=== PATIENT | female | born 1945 | race Caucasian/White ===

== ENCOUNTER 2024-05-21 17:39 | Inpatient (IN) | payer OTHER ==
[2024-05-21] MEDS ORDERED: ONDANSETRON 4 MG/2 ML VIAL ONE (18:23)
[2024-05-21] MEDS ORDERED: MORPHINE 4 MG/ML SYR ONE (18:24)
[2024-05-21 18:28] LABS: Absolute Eosinophils 0.1 K/uL (0-0.5); Absolute Lymphocytes (CBC) 0.8 K/uL (0.7-4.9); Absolute Monocytes 0.3 K/uL (0.1-1.3); Absolute Neutrophil 9.1 K/uL (1.8-8.0); Basophils % 0.4 % (0-1.3); Eosinophils % 0.8 % (0-4.4); Hematocrit 41.9 % (36.0-45.0); MCH 30.8 pg (27.0-35.0); MCHC 33.5 g/dL (32.0-36.0); MCV 91.8 fL (80-100); MPV 7.7 fL (7.6-11.3); Monocytes % 2.9 % (3.3-12.3); Neutrophils % 87.9 % (41.7-73.7); Platelets 286 thou/uL (152-406); RBC Red Blood Cell Count 4.56 M/uL (3.86-4.86); Red Cell Distribution Width 13.2 % (12.1-15.2)
[2024-05-21 18:43] LABS: Albumin 3.5 g/dL (3.4-5.0); Albumin/Globulin Ratio 0.9 (1.1-1.8); Bilirubin Total 0.8 mg/dL (0.2-1.0); Protein, Total 7.5 g/dL (6.4-8.2)
--- NOTE | 2024-05-21 19:44 | RAD REPORT ---
EXAMINATION: CT ABDOMEN AND PELVIS WITH CONTRAST CLINICAL INDICATION: Female, 79 years old.ABD PAIN TECHNIQUE: CT abdomen and pelvis was performed, after the administration of IV contrast, [facility]. Axial, sagittal and coronal reconstructions were obtained. One or more of the following dose reduction techniques were used: Automated exposure control, adjustment of the mA and/o r kV according to patient size, and/or iterative reconstruction. Unless otherwise specified, incidental findings do not require dedicated imaging follow-up. [id number]. COMPARISON: 02/29/2024 FINDINGS: LOWER CHEST: No acute process identified.No significant pericardial effusion. UPPER GI: No significant abnormality. LIVER: No significant focal abnormality. GALLBLADDER/BILE DUCTS: Cholecystectomy. Mild extra-hepatic biliary ductal dilatation is likely relat ed to the post-cholecystectomy state. Consider correlating with LFT's.? PANCREAS: No mass, ductal dilation, or zoie-pancreatic fluid. SPLEEN: Unremarkable. ADRENALS: No adrenal masses. KIDNEYS AND URETERS: No hydronephrosis.Low density and/or too small to characterize renal lesions whi ch are statistically benign.No renal calculi. ABDOMINAL AORTA AND OTHER VESSELS: Mild atherosclerotic changes. PERITONEUM: Nonspecific free fluid. LYMPH NODES: No pathologic lymphadenopathy. ABDOMINAL WALL: Unremarkable SMALL BOWEL/COLON: Small bowel obstruction with transition point in the right upper quadrant where th ere is sharply angulated bowel likely reflecting adhesions. The small bowel measures up to 4.9 cm. URINARY BLADDER: Underdistended but grossly unremarkable. REPRODUCTIVE ORGANS: No pathologic process. MUSCULOSKELETAL: Multilevel degenerative changes in the spine. No acute fracture. Hip arthroplasties. ADDITIONAL FINDINGS: None. IMPRESSION: Small bowel obstruction with transition point in the right upper quadrant presumably secondary to adh esions. Mild nonspecific perihepatic free fluid.
--- NOTE | 2024-05-21 19:50 | EDPHYS ---
Physician Documentation [facility] Name: Jeny Alonso Age: 79 yrs Sex: Female : 1945 Arrival Date: 05/21/2024 Time: 17:39 Bed 25 Private MD: ED Physician Husam Marshall HPI: 05/21 18:10 This 79 yrs old Female presents to ER via Ambulatory with complaints of Severe sp3 Abdominal Pain. 18:10 79-year-old female with history of hyperlipidemia, hypertension, diabetes, prior fecal sp3 impaction now presents to the ED with chief complaint abdominal pain over the last 1 to 2 days. Last bowel movement was yesterday. She states that she feels distended and has had some increased belching. She denies any headache, fever, URI symptoms, chest pain, shortness of breath, back pain, rash, syncope, near syncope, known sick contacts, travel history, or any other signs or symptoms on ROS at this time. Surgical history includes appendectomy and cholecystectomy. Patient is not on any anticoagulants or antiplatelet agents.. Historical: - Allergies: 18:03 NSAIDS; cm10 - PMHx: 18:03 High Cholesterol; Hypertension; Diabetes mellitus; cm10 - PSHx: 18:03 Cholecystectomy; Appendectomy; section; cm10 - Immunization history:: Adult Immunizations up to date. - Infectious Disease History:: Denies. - Social history:: Smoking status: Patient denies any tobacco usage or history of. ROS: 18:10 Constitutional: Negative for fever, chills, and weight loss, Eyes: Negative for injury, sp3 pain, redness, and discharge, Neck: Negative for injury, pain, and swelling, Cardiovascular: Negative for chest pain, palpitations, and edema, Respiratory: Negative for shortness of breath, cough, wheezing, and pleuritic chest pain, Back: Negative for injury and pain, MS/Extremity: Negative for injury and deformity, Skin: Negative for injury, rash, and discoloration, Neuro: Negative for headache, weakness, numbness, tingling, and seizure, Psych: Negative for depression, anxiety, suicide ideation, homicidal ideation, and hallucinations, Allergy/Immunology: Negative for hives, rash, and allergies, Endocrine: Negative for neck swelling, polydipsia, polyuria, polyphagia, and marked weight changes, Hematologic/Lymphatic: Negative for swollen nodes, abnormal bleeding, and unusual bruising, 18:10 All other systems are negative, Exam: 18:10 Constitutional: This is a well developed, well nourished patient who is awake, alert, sp3 and in no acute distress. Head/Face: Normocephalic, atraumatic. Eyes: Pupils equal round and reactive to light, extra-ocular motions intact. Lids and lashes normal. Conjunctiva and sclera are non-icteric and not injected. Cornea within normal limits. Periorbital areas with no swelling, redness, or edema. Neck: Trachea midline, no thyromegaly or masses palpated, and no cervical lymphadenopathy. Supple, full range of motion without nuchal rigidity, or vertebral point tenderness. No Meningismus. Chest/axilla: Normal chest wall appearance and motion. Nontender with no deformity. No lesions are appreciated. Cardiovascular: Regular rate and rhythm with a normal S1 and S2. No gallops, murmurs, or rubs. Normal PMI, no JVD. No pulse deficits. Respiratory: Lungs have equal breath sounds bilaterally, clear to auscultation and percussion. No rales, rhonchi or wheezes noted. No increased work of breathing, no retractions or nasal flaring. Back: No spinal tenderness. No costovertebral tenderness. Full range of motion. Skin: Warm, dry with normal turgor. Normal color with no rashes, no lesions, and no evidence of cellulitis. MS/ Extremity: Pulses equal, no cyanosis. Neurovascular intact. Full, normal range of motion. Neuro: Awake and alert, GCS 15, oriented to person, place, time, and situation. Cranial nerves II-XII grossly intact. Motor strength 5/5 in all extremities. Sensory grossly intact. Cerebellar exam normal. Normal gait. Psych: Awake, alert, with orientation to person, place and time. Behavior, mood, and affect are within normal limits. 18:10 Abdomen/GI: Mildly distended abdomen diffusely tender to palpation bilateral lower quadrants. No peritoneal signs, rebound or guarding., Vital Signs: 18:04 BP 171 / 50; Pulse 60; Resp 15; Temp 97.6(O); Pulse Ox 98% on R/A; Weight 86.18 kg; cm10 Height 5 ft. 4 in. ; Pain 8/10; 19:30 BP 160 / 47; Pulse 62; Resp 16; Pulse Ox 98% on R/A; jb4 21:00 BP 138 / 46; Pulse 62; Resp 16; Pulse Ox 94% on R/A; jb4 22:00 BP 129 / 66; Pulse 58; Resp 16; Pulse Ox 98% on R/A; jb4 18:04 Body Mass Index 32.61 (86.18 kg, 162.56 cm) cm10 18:04 Pain Scale: Adult cm10 MDM: 17:48 Medical Screening Exam initiated sp3 18:11 Data reviewed: vital signs, nurses notes, lab test result(s), radiologic studies. ED sp3 course: 79-year-old female with abdominal pain and distention. Differential diagnosis includes ileus, bowel obstruction, fecal impaction, other GI process, among others. I am not highly suspicious of surgical abdomen, aortic/vascular pathology, ACS, PE, sepsis, shock or any other critical process. Workup will include CT scan of the abdomen pelvis, general labs and supportive care with pain and nausea medications as indicated.. 19:47 ED course: CT demonstrates small bowel obstruction right upper quadrant transition sp3 point presumably due to adhesions. Will discuss with surgery Dr. Ying and internal medicine Dr. Villa.. 05/21 18:07 Order name: CBC with Diff; Complete Time: 19:19 sp3 05/21 18:07 Order name: CMP; Complete Time: 19:19 sp3 05/21 18:07 Order name: Lipase; Complete Time: 19:19 sp3 05/21 18:07 Order name: Urinalysis w/ reflexes sp3 05/21 20:12 Order name: Urinalysis w/ reflexes EDMS 05/21 20:12 Order name: CBC with Automated Diff EDMS 05/21 20:12 Order name: CBC with Automated Diff EDMS 05/21 20:12 Order name: Comprehensive Metabolic Panel EDMS 05/21 20:12 Order name: Comprehensive Metabolic Panel EDMS 05/21 20:13 Order name: Urine Culture EDMS 05/21 18:07 Order name: CT Abd/Pelvis - IV Contrast Only; Complete Time: 19:45 sp3 05/21 20:12 Order name: CONS Physician Consult EDND 05/21 18:07 Order name: IV Saline Lock; Complete Time: 18:30 sp3 05/21 18:07 Order name: Labs collected and sent; Complete Time: 18:30 sp3 05/21 19:40 Order name: Straight Cath - Urine; Complete Time: 20:08 vc1 05/21 19:49 Order name: NPO; Complete Time: 20:08 sp3 Administered Medications: 18:29 Drug: Ondansetron IVP 4 mg IVP once; over 2 minutes Route: IVP; Site: left antecubital; bp 19:00 Follow up: Response: No adverse reaction; Marked relief of symptoms jb4 18:29 Drug: morphine IVP or IV 4 mg IVP once over 4 mins Route: IVP; Infused Over: 4 mins; bp Site: left antecubital; 19:00 Follow up: Response: No adverse reaction; Marked relief of symptoms jb4 Disposition Summary: 05/21/24 19:50 Hospitalization Ordered Notes: Hospitalization Status: Inpatient Admission sp3 Provider: Salvador Villa sp3 Location: Telemetry/MedSur (Inpatient) sp3 Condition: Stable sp3 Problem: new sp3 Symptoms: have worsened sp3 Bed/Room Type: Standard sp3 Room Assignment: 230(05/21/24 20:15) rv1 Diagnosis - Small bowel obstruction, abdominal pain sp3 Forms: - Medication Reconciliation Form sp3 - SBAR form sp3 - Leadership Thank You Letter sp3 Signatures: Dispatcher [employer] Kevin Desai, SOCRATES RN bp Shanda Lassiter MD MD sp3 Brit Grayson RN RN vc1 Ana Lilia Fowler rv1 Neli Sethi RN RN cm10 Apollo Pierce RN jb4 Corrections: (The following items were deleted from the chart) 20:15 19:50 sp3 rv1
--- NOTE | 2024-05-21 19:50 | ER ---
Nurse's Notes [facility] Name: Jeny Alonso Age: 79 yrs Sex: Female : 1945 Arrival Date: 05/21/2024 Time: 17:39 Bed 25 Private MD: Diagnosis: Small bowel obstruction, abdominal pain Presentation: 05/21 18:04 Chief complaint: Patient states: Abdominal pain and distention onset today. Pt also cm10 reports nausea. Pt states that last time she had pain similar to this she has a fecal impaction. Coronavirus screen: Client denies travel out of the [place] in the last 14 days. Ebola Screen: Patient denies travel to an Ebola-affected area in the 21 days before illness onset. Initial Sepsis Screen: Does the patient meet any 2 criteria? No. Patient's initial sepsis screen is negative. Does the patient have a suspected source of infection? No. Patient's initial sepsis screen is negative. Risk Assessment: Do you want to hurt yourself or someone else? Patient reports no desire to harm self or others. Onset of symptoms was May 21, 2024. 18:04 Method Of Arrival: Ambulatory cm10 18:04 Acuity: NOE 3 cm10 Triage Assessment: 18:03 General: Appears uncomfortable, Behavior is calm, cooperative. Pain: Complains of pain cm10 in abdomen. Neuro: No deficits noted. Level of Consciousness is awake, alert, obeys commands, Oriented to person, place, time, situation, Appropriate for age. Respiratory: No deficits noted. Airway is patent Respiratory effort is even, unlabored, Respiratory pattern is regular, symmetrical. GI: Abdomen is distended. Historical: - Allergies: 18:03 NSAIDS; cm10 - PMHx: 18:03 High Cholesterol; Hypertension; Diabetes mellitus; cm10 - PSHx: 18:03 Cholecystectomy; Appendectomy; section; cm10 - Immunization history:: Adult Immunizations up to date. - Infectious Disease History:: Denies. - Social history:: Smoking status: Patient denies any tobacco usage or history of. Screenin:30 [facility] ED Fall Risk Assessment (Adult) History of falling in the last 3 months, bp including since admission No falls in past 3 months (0 pts) Confusion or Disorientation No (0 pts) Intoxicated or Sedated No (0 pts) Impaired Gait No (0 pts) Mobility Assist Device Used No (0 pt) Altered Elimination No (0 pt) Score/Fall Risk Level 0 - 2 = Low Risk Oriented to surroundings, Maintained a safe environment. Abuse screen: Denies threats or abuse. Nutritional screening: No deficits noted. Tuberculosis screening: No symptoms or risk factors identified. Assessment: 18:33 General: Appears in no apparent distress. comfortable, Behavior is calm, cooperative, bp appropriate for age. Pain: Complains of pain in abdomen Pain does not radiate. Pain currently is 7 out of 10 on a pain scale. Neuro: Level of Consciousness is awake, alert, obeys commands, Oriented to person, place, time, situation. Cardiovascular: Patient's skin is warm and dry. Respiratory: Airway is patent Respiratory effort is even, unlabored, Respiratory pattern is regular, symmetrical. GI: Abdomen is flat, non-distended, Abd is soft X 4 quads Abdomen is tender to palpation X 4 quads. Reports lower abdominal pain, upper abdominal pain, diarrhea, nausea. Derm: Skin is intact, Skin is pink, warm \T\ dry. Musculoskeletal: Circulation, motion, and sensation intact. Range of motion: intact in all extremities. 20:00 Reassessment: Patient appears in no apparent distress at this time. Patient and/or jb4 family updated on plan of care and expected duration. Pain level reassessed. Patient is alert, oriented x 3, equal unlabored respirations, skin warm/dry/pink. 21:00 Reassessment: Patient appears in no apparent distress at this time. Patient and/or jb4 family updated on plan of care and expected duration. Pain level reassessed. Patient is alert, oriented x 3, equal unlabored respirations, skin warm/dry/pink. 22:00 Reassessment: Patient appears in no apparent distress at this time. Patient and/or jb4 family updated on plan of care and expected duration. Pain level reassessed. Patient is alert, oriented x 3, equal unlabored respirations, skin warm/dry/pink. Vital Signs: 18:04 BP 171 / 50; Pulse 60; Resp 15; Temp 97.6(O); Pulse Ox 98% on R/A; Weight 86.18 kg; cm10 Height 5 ft. 4 in. ; Pain 8/10; 19:30 BP 160 / 47; Pulse 62; Resp 16; Pulse Ox 98% on R/A; jb4 21:00 BP 138 / 46; Pulse 62; Resp 16; Pulse Ox 94% on R/A; jb4 22:00 BP 129 / 66; Pulse 58; Resp 16; Pulse Ox 98% on R/A; jb4 18:04 Body Mass Index 32.61 (86.18 kg, 162.56 cm) cm10 18:04 Pain Scale: Adult cm10 ED Course: 17:46 Patient arrived in ED. cj3 17:48 Shanda Lassiter MD is Attending Physician. sp3 18:03 Kevin Payan, SOCRATES is Primary Nurse. bp 18:04 Arm band placed on right wrist. Patient placed in an exam room, on a stretcher. cm10 18:06 Triage completed. cm10 18:18 No provider procedures requiring assistance completed. Inserted saline lock: 20 gauge bp in left antecubital area, using aseptic technique. Blood collected. 18:30 Patient has correct armband on for positive identification. Bed in low position. Call bp light in reach. Side rails up X 1. 18:30 CBC with Diff Sent. bp 18:30 CMP Sent. bp 18:30 Lipase Sent. bp 19:30 CT Abd/Pelvis - IV Contrast Only In Process Unspecified. EDMS 19:49 Salvador Villa MD is Hospitalizing Provider. sp3 20:00 Attending Physician role handed off by Shanda Lassiter MD sp4 20:00 Husam Marshall MD is Attending Physician. sp4 20:08 Urinalysis w/ reflexes Sent. jb4 22:07 Patient admitted, IV remains in place. jb4 Administered Medications: 18:29 Drug: Ondansetron IVP 4 mg IVP once; over 2 minutes Route: IVP; Site: left antecubital; bp 19:00 Follow up: Response: No adverse reaction; Marked relief of symptoms jb4 18:29 Drug: morphine IVP or IV 4 mg IVP once over 4 mins Route: IVP; Infused Over: 4 mins; bp Site: left antecubital; 19:00 Follow up: Response: No adverse reaction; Marked relief of symptoms jb4 Medication: 22:07 VIS not applicable for this client. jb4 Outcome: 19:50 Decision to Hospitalize by Provider. sp3 22:07 Admitted to Med/surg accompanied by nurse, via stretcher, room 230, with chart, jb4 22:07 Condition: stable 22:07 Discharge instructions given to patient, family, Instructed on the need for admit, Demonstrated understanding of instructions, 22:08 Patient left the ED. jb4 Signatures: Dispatcher [employer] EDApollo Ibarra RN RN jb4 Kevin Payan, RN RN Shanda Arteaga MD MD sp3 Husam Marshall MD MD sp4 Neli Sethi RN RN cm10 Marisela Alonso 3
--- NOTE | 2024-05-21 20:02 | P.HP ---
Certification for Inpatient Patient admitted to: Inpatient With expected LOS: >2 Midnights Practitioner: I am a practitioner with admitting privileges, knowledge of patient current condition, hospital course, and medical plan of care. Services: Services provided to patient in accordance with Admission requirements found in Title 42 Section 412.3 of the Code of Federal Regulations Patient History Date of Service: 05/21/24 Reason for admission: SBO History of Present Illness: 79 yrs old Female with past medical history of High Cholesterol; Hypertension; Diabetes mellitus presents with complaints of Severe Abdominal Pain. She had prior fecal impaction history as well and also has history of cholecystectomy, appendectomy and . She had a recent colonoscopy a wee k ago by Dr. Duron. It was uneventful as per the patient. Patient started having some bowel discomfort since then. The pain slowly worsened over the last 3 days and is progressively getting worse and was brought to ER. Patient also feeling nauseous. No vomiting. Last bowel movement yesterday. Patient denies any fever or chills. No chest pain or shortness of breath. Patient was assessed in the ER and had a workup which was consistent with SBO and was admitted for further management. Surgery was consulted Allergies NSAIDS (Non-Steroidal Anti-Inflamma Adverse Reaction (Verified 04/04/17 13:19) pancreatic enzymes Home medications list reviewed: Yes Home Medications: Aspirin Chewable [Aspirin Chewable*] 81 mg PO DAILY 07/07/13 Calcium Carbonate/Vitamin D3 [Caltrate 600 Plus D3 Tablet] 1 tab PO DAILY 07/07/13 Fenofibrate Nanocrystallized [Fenofibrate] 145 mg PO BEDTIME 07/07/13 Furosemide [Lasix*] 40 mg PO DAILY 07/07/13 Multivitamin A-Z 50+ Advanced 1 tab PO DAILY 07/07/13 Nebivolol HCl [Bystolic*] 10 mg PO DAILY 07/07/13 Simvastatin 20 mg PO BEDTIME 07/07/13 Ciprofloxacin/Ciprofloxa HCl [Cipro 500 MG Xr Tablet] 500 mg PO DAILY #10 tbmp.24hr 04/07/17 metroNIDAZOLE [Flagyl] 500 mg PO Q8H #30 tablet 04/07/17 - Past Medical/Surgical History Diabetic: No Past Medical History: Reviewed- Non-Contributory -: HTN, HYPERLIPIDEMIA, HYPOTHYROID -: Small Bowel Obstruction Past Surgical History: Reviewed- Non-Contributory -: X3 , R-HIP REPLACEMENT, L KNEE REPLACEMENT -: APPENDECTOMY, CHOLECYSTECTOMY -: TONSILECTOMY -: L shoulder total replacement - Family History Mother -: Cancer Notes: Pancreatic; high cholesterol Father -: Heart disease, Stroke - Social History Smoking Status: Never smoker Alcohol use: No CD- Drugs: No Caffeine use: Yes Review of Systems 10-point ROS is otherwise unremarkable Physical Examination - Vital Signs Temperature: 97.4 F Blood Pressure: 132/68 Pulse: 78 Respirations: 18 Pulse Ox (%): 94 - Physical Exam General: Alert, In no apparent distress, Oriented x3 HEENT: Atraumatic, Normocephalic Neck: Supple, No Thyromegaly Respiratory: Clear to auscultation bilaterally, Normal air movement Cardiovascular: Regular rate/rhythm, Normal S1 S2 Capillary refill: <2 Seconds Gastrointestinal: W/out hepatosplenomegaly, Distended, Tenderness Musculoskeletal: No clubbing, No swelling Integumentary: No rashes Neurological: Normal speech, Normal strength at 5/5 x4 extr Lymphatics: No axilla or inguinal lymphadenopathy - Studies Laboratory Data (last 24 hrs) 05/21/24 05/21/24 18:18 18:18 WBC 10.40 Hgb 14.0 Hct 41.9 Plt Count 286 Sodium 136 Potassium 4.0 BUN 39 H Creatinine 1.23 H Glucose 165 H Total Bilirubin 0.8 AST 27 ALT 30 Alkaline Phosphatase 38 L Lipase 92 H Assessment and Plan - Plan Small bowel obstruction Intractable abdominal pain Nausea CT findings noted : Small bowel obstruction with transition point in the right upper quadrant presumably secondary to adhesions. Mild nonspecific perihepatic free fluid Consistent with possible SBO Will keep n.p.o. for now IV hydration Reglan as needed Surgical consult Hypertension Antihypertensives titrated Continue home medications and titrate as needed Hyperlipidemia Continue statin JESSICA Monitor renal parameters Electrolytes monitor and replace accordingly Diabetes Insulin sliding scale Accu-Chek before every meal and at bedtime Patient had a recent colonoscopy Dr. Duron is her GI UTI Started on IV antibiotic Will obtain cultures Change antibiotic as per sensitivity GI/DVT prophylaxis Advanced directive full code Discharge Plan: Home Plan to discharge in: 48 Hours - Advance Directives Does patient have a Living Will: No Does patient have a Durable POA for Healthcare: No - Code Status/Comfort Care Code Status: Full Code Time Spent Managing Pts Care (In Minutes): 54
[2024-05-21 20:08] LABS: Specific Gravity 1.017 (1.005-1.030); Sqamous Epithelial <5 /HPF (None Seen); Urine Bacteria <20 /HPF (<20); Urine Bilirubin NEGATIVE (Negative); Urine Blood Negative (Negative); Urine Clarity Extremely Turbid (Clear); Urine Color Light-Yellow (Yellow); Urine Crystals Unidentified Few /HPF (None Seen); Urine Culture Reflex Order REFLEXED; Urine Glucose NEGATIVE (Negative); Urine Ketones NEGATIVE (Negative); Urine Microscopic Reflex YN ORDER UMIC; Urine Mucus Slight /HPF (None Seen); Urine Nitrite 2+ (Negative); Urine Protein NEGATIVE (Negative); Urine RBC <5 /HPF (None Seen); Urine Urobilinogen Normal (Normal); Urine WBC >50 /HPF (<5); Urine WBC Clump Rare /HPF (None Seen); Urine Yeast (Budding) Occasional /HPF (None Seen); Urine pH 6.5 (5.0-7.0)
[2024-05-21] MEDS: NA CHLORIDE 0.9% 1,000 ML IV SCH (22:04)
[2024-05-21 23:14] VITALS: BMI 31.6
[2024-05-22] MEDS: PIPER TAZO 3.375 GM in NA CHLORIDE 0.9% 100 ML IV SCH (01:00)
[2024-05-22 05:21] LABS: Absolute Eosinophils 0.1 K/uL (0-0.5); Absolute Lymphocytes (CBC) 1.8 K/uL (0.7-4.9); Absolute Neutrophil 8.7 K/uL (1.8-8.0); Basophils % 0.3 % (0-1.3); Eosinophils % 1.2 % (0-4.4); Hematocrit 37.9 % (36.0-45.0); Hemoglobin 13.1 g/dL (12.0-15.0); Lymphocytes % 15.2 % (15.3-44.8); MCH 31.6 pg (27.0-35.0); MCHC 34.6 g/dL (32.0-36.0); MCV 91.4 fL (80-100); MPV 8.2 fL (7.6-11.3); Monocytes % 8.6 % (3.3-12.3); Neutrophils % 74.7 % (41.7-73.7); Platelets 264 thou/uL (152-406); RBC Red Blood Cell Count 4.15 M/uL (3.86-4.86); Red Cell Distribution Width 13.2 % (12.1-15.2)
[2024-05-22 05:42] LABS: Albumin 3.1 g/dL (3.4-5.0); Albumin/Globulin Ratio 0.8 (1.1-1.8); Anion Gap 8.6 mEq/L (5.0-15.0); Bilirubin Total 0.9 mg/dL (0.2-1.0); Globulin 3.7 g/dL (2.3-3.5); Potassium 4.6 mEq/L (3.5-5.1); Protein, Total 6.8 g/dL (6.4-8.2)
[2024-05-22] MEDS: ONDANSETRON 4 MG/2 ML VIAL IV PRN (06:40)
[2024-05-22] MEDS: MORPHINE 2 MG/ML SYR IV PRN (06:41)
[2024-05-22] MEDS: ENOXAPARIN 40 MG/0.4 ML SQ SCH (07:59)
[2024-05-22] MEDS ORDERED: SODIUM CHLORIDE 0.9% 10ML INJ IV PRN (10:39)
[2024-05-22] MEDS: PANTOPRAZOLE 40 MG INJ IVP ONE (10:53)
[2024-05-22] MEDS: ACETAMINOPHEN 325 MG TABLET PO PRN (14:54)
--- NOTE | 2024-05-22 19:06 | CON ---
Date of Consultation: 05/22/2024 Brief History Of Present Illness: The patient is an 79-year-old female with past medical history of high cholesterol, hypertension, diabetes, who presents on 05/21 with complaints of abdominal pain, wh ich became severe over the course of 2 days prior to her admission. She had a bowel movement the day prior to her admission and presentation to the hospital, which is relatively normal. At that time, she has had some nausea, but no vomiting. She states the pain is similar to bowel obstruction she luna d before in the past. She has had several bowel obstructions before in the past. She has never had surgery for a bowel obstruction. They have been treated medically and without surgical intervention being required. She saw Dr. Alvarez recently who performed a recent colonoscopy, which she states she believes was uneventful. However, shortly thereafter, she developed abdominal pain and it continued to progress. Past Medical History: Significant for high cholesterol, hypertension, diabetes, bowel obstructions, hypothyroidism. Past Surgical History: Includes C-sections x3, right hip replacement, left knee replacement, appende ctomy, cholecystectomy, tonsillectomy, left shoulder replacement. Allergies: NSAIDS AND PANCREATIC ENZYMES. Home Medications: Include aspirin, Calcitrate, fenofibrate, Lasix, multivitamin, simvastatin. Family History: Mother had a history of pancreatic cancer. Father had a history of stroke and hear t disease. Social History: She denies smoking, alcohol, or recreational drug. Review of Systems: 10-point review of systems other than HPI, she currently denies. Physical Examination: At the time of examination: General: She is awake, alert, and oriented. Psychiatric: Appropriate, conversive. HEENT: She is normocephalic. Sclerae icteric. Mucous membranes are moist. Oropharynx clear. Neck: Supple. No JVD. Chest: Normal to expansion and excursion. Cardiovascular: Regular rate and rhythm. Pulmonary: Clear to auscultation bilaterally. Abdomen: Soft with global mild tenderness to palpation. No rebound. No guarding. No focal periton itis. There are well-healed surgical scars evident. She is obese, generally. Slightly tympanic abd omen. Extremities: No clubbing, cyanosis, or edema. Skin: Warm and dry. Laboratory Data: Reveals white blood cell count 11.7, hemoglobin is 13.1, hematocrit of 37.9, platel et count is 264. Her sodium is 139, potassium 4.6, chloride 103, carbon dioxide is 32, BUN 35, creat inine 1.1, glucose is 114, lipase is 92 on admission. UA shows extremely turbid, greater than 500 le ukocyte esterase, 2+ nitrite, greater than 50 white blood cell clumps, occasional yeast with budding. She had a CT scan performed of the abdomen and pelvis, which was officially read as small bowel obs truction with transition point in the right upper quadrant, presumably secondary to adhesions. Mild nonspecific perihepatic free fluid. Assessment And Plan: This is an 79-year-old woman who comes in with signs and symptoms of a small jamar wel obstruction. 1. IV fluid hydration. 2. Antibiotic coverage. 3. NG tube decompression if and only if she develops episodes of nausea with vomiting. 4. Continue medical management. 5. Ambulation. 6. Chewing gum. 7. Serial abdominal exams. I have explained risks, benefits, and alternatives of above stated plan. The patient displayed under standing of the above stated plan and agrees to proceed with medical management initially. However, if she fails medical management, we discussed the possibility of needing surgical intervention, which could be an exploratory laparotomy, possible bowel resection, indicated procedures. The patient wou ld like to try nonoperative management at this time as she states her symptoms are slightly improved. Therefore, we will perform serial exams as described above. CORBIN/BINH Voice ID: [id number] Report ID: [id number]
--- NOTE | 2024-05-23 08:09 | RAD REPORT ---
EXAM: Abdomen W Erect HISTORY: SBO COMPARISON: CT 05/21/2024 FINDINGS: Small bowel obstruction persists with small bowel measuring up to 4.6 cm. Minimal colonic gas. Lung bases clear. No acute osseous abnormality. Hip arthroplasties. No significant/abnormal calcifications. IMPRESSION: Small bowel obstruction similar to 05/21/2024 CT.
[2024-05-23 08:43] LABS: Anion Gap 8.9 mEq/L (5.0-15.0); Potassium 3.9 mEq/L (3.5-5.1)
[2024-05-23 09:49] VITALS: O2SAT 97
--- NOTE | 2024-05-23 11:17 | RAD REPORT ---
EXAM: AP view(s) of the abdomen Abdomen 1 View (KUB) HISTORY: Placement of NGT/OGT. Post Insertion. COMPARISON: Same-day IMPRESSION: NG tube tip overlies the gastric body is suspected position.
--- NOTE | 2024-05-23 15:05 | P.PN ---
Subjective Date of Service: 05/23/24 Chief Complaint: SBO Subjective: Improving (Patient states her pain is somewhat improved over her abdomen but not significantly from previous exam. In addition she has had some increased nausea today and had an episode of vomiting. No gas no bowel movements otherwise she has not been ambulatory) Physical Examination - Vital Signs Temperature: 98.4 F Blood Pressure: 158/70 Pulse: 52 Respirations: 16 Pulse Ox (%): 92 - Physical Exam General: Alert, In no apparent distress, Oriented x3, Cooperative Gastrointestinal: Other (Soft mild global tenderness to palpation not significantly changed from previous exam, tympanic overall no peritonitis no rebound no guarding) Assessment And Plan - Plan Patient is an 79-year-old woman with multiple abdominal surgeries including 3 C- sections cholecystectomy appendectomy who now presents with a small bowel obstruction. -Continue serial abdominal exams. -Continue NG tube decompression at this point as it has been placed to low i ntermittent wall suction after episode of nausea vomiting. -Continue medical management. -Serial KUBs. -I have spoken to the patient and her daughter and granddaughter and they all would like to prevent surgery if at all possible as she has had significant history of surgery as described above. She would like to wait at this time before considering surgical intervention. -Ambulate with assist.
[2024-05-24] MEDS: HYDRALAZINE HCL 20 MG/ML VIAL IV PRN (06:08)
[2024-05-24 06:45] LABS: Anion Gap 7.7 mEq/L (5.0-15.0); Magnesium 2.5 mg/dL (1.6-2.4); Potassium 3.7 mEq/L (3.5-5.1)
--- NOTE | 2024-05-24 08:37 | RAD REPORT ---
Exam:Abdomen 1 View (KUB) Clinical history: Abdominal pain FINDINGS: Mildly to moderately dilated small bowel without significant change from the prior CAT scan. Air within the colon diminished. This is compatible with a small bowel obstruction Nasogastric tube is present within the gastric body.
--- NOTE | 2024-05-24 09:48 | P.PN ---
Subjective Date of Service: 05/24/24 Chief Complaint: SBO Subjective: Improving (Patient states her abdominal pain is significantly improved, she has less tenderness as well. NG tube remains in place. She has been passing gas from her bottom for the first time since admission.) Physical Examination - Vital Signs Temperature: 97.6 F Blood Pressure: 172/70 Pulse: 42 Respirations: 16 Pulse Ox (%): 95 - Physical Exam General: Alert, In no apparent distress, Oriented x3, Cooperative Gastrointestinal: Other (Soft, mild global tenderness to palpation, mild tympany, improved from prior, no peritonitis no rebound or guarding.) - Studies Microbiology Data (last 24 hrs): 05/21/24 19:57 Clean Catch Urine Manly Count - Final >100,000 CFU/ML. 05/21/24 19:57 Clean Catch Urine - Final Enterobacter Intermedium Assessment And Plan - Plan Patient is an 79-year-old woman with multiple abdominal surgeries including 3 C- sections cholecystectomy appendectomy who now presents with a small bowel obstruction. -Continue serial abdominal exams. -Continue NG tube decompression at this point as it has been placed to low intermittent wall suction . -Continue medical management. -Serial KUBs. -I have spoken to the patient and her daughter and granddaughter and they all would like to prevent surgery if at all possible as she has had significant history of surgery as described above. She would like to wait at this time before considering surgical intervention. -Ambulate with assist. -Patient has electrolyte abnormalities, will discuss with Dr. Phan on the management and electrolyte correction strategies.
[2024-05-24] MEDS: POTASSIUM PHOS IN 0.9 % NACL 15 MMOL/250 ML BAG IV ONE (17:41)
[2024-05-24] MEDS: D5 0.45 NS 1,000 ML IV SCH (17:42)
[2024-05-24] MEDS ORDERED: SODIUM CHLORIDE 0.9% 10ML INJ IV PRN (19:51)
[2024-05-24] MEDS: PANTOPRAZOLE 40 MG INJ IVP SCH (21:11)
[2024-05-24] MEDS: KCL 20 MEQ/100 mL IVPB 20 MEQ/100 ML BAG IV SCH (21:34)
[2024-05-25 07:26] LABS: Absolute Lymphocytes (CBC) 1.1 K/uL (0.7-4.9); Absolute Monocytes 0.6 K/uL (0.1-1.3); Absolute Neutrophil 6.3 K/uL (1.8-8.0); Basophils % 0.2 % (0-1.3); Eosinophils % 0.4 % (0-4.4); Hematocrit 36.9 % (36.0-45.0); Hemoglobin 12.6 g/dL (12.0-15.0); Lymphocytes % 14.1 % (15.3-44.8); MCH 31.5 pg (27.0-35.0); MCHC 34.2 g/dL (32.0-36.0); MCV 92.1 fL (80-100); MPV 8.5 fL (7.6-11.3); Monocytes % 7.8 % (3.3-12.3); Neutrophils % 77.5 % (41.7-73.7); Platelets 215 thou/uL (152-406); RBC Red Blood Cell Count 4.01 M/uL (3.86-4.86); Red Cell Distribution Width 13.3 % (12.1-15.2)
[2024-05-25 07:48] LABS: Albumin 2.7 g/dL (3.4-5.0); Albumin/Globulin Ratio 0.8 (1.1-1.8); Anion Gap 7.4 mEq/L (5.0-15.0); Bilirubin Total 0.7 mg/dL (0.2-1.0); Globulin 3.6 g/dL (2.3-3.5); Phosphorus 2.3 mg/dL (2.5-4.9); Potassium 3.4 mEq/L (3.5-5.1); Protein, Total 6.3 g/dL (6.4-8.2); Thyroid Stimulating Hormone 0.29 uIU/mL (0.358-3.740)
[2024-05-25] MEDS: KCL 20 MEQ/100 mL IVPB 20 MEQ/100 ML BAG IV SCH (09:34)
--- NOTE | 2024-05-25 10:06 | RAD REPORT ---
EXAM: XR Abdomen 1 View (KUB) HISTORY: [facility] SBO COMPARISON: 05/24/2024 FINDINGS: Single view of the abdomen shows stable distention of central and left hemiabdomen small jamar wel dilation, with caliber measuring up to 4.9 cm. Enteric tube unchanged in position. No suspicious calcifications are seen. The bones are unremarkable. IMPRESSION: Stable small bowel gastric distention, again concerning for obstruction.
--- NOTE | 2024-05-25 12:30 | P.PN ---
Subjective Date of Service: 05/25/24 Chief Complaint: SBO Subjective: Improving (Patient states she passed more gas per rectum, felt as if she would have a bowel movement earlier but no bowel movement occurred. Her pain is now resolved, she still has some tenderness but she states improved from prior. No vomiting. She ambulated in the halls.) Physical Examination - Vital Signs Temperature: 98.1 F Blood Pressure: 145/80 Pulse: 63 Respirations: 15 Pulse Ox (%): 96 - Physical Exam General: Alert, In no apparent distress, Oriented x3, Cooperative Gastrointestinal: Other (Soft, mild bilateral upper quadrant improved tenderness to palpation, no rebound no guarding no focal peritonitis, decreased tympany. Bowel sounds evident.) Assessment And Plan - Plan Patient is an 79-year-old woman with multiple abdominal surgeries including 3 C- sections cholecystectomy appendectomy who now presents with a small bowel obstruction. -Continue serial abdominal exams. -Continue NG tube decompression at this point as it has been placed to low intermittent wall suction . -Continue medical management. -Serial KUBs. -I have spoken to the patient and her daughter and granddaughter and they all would like to prevent surgery if at all possible as she has had significant history of surgery as described above. She would like to wait at this time before considering surgical intervention. -Ambulate with assist. -Patient has electrolyte abnormalities, will discuss with Dr. Phan on the management and electrolyte correction strategies. -As patient continues to have slow improvement we will be patient and continue medical management, however if she stagnates and/or has worsening clinical picture I have discussed the need for operative intervention at that time however the patient and her daughter do not want to proceed with surgery at this point and would like to continue medical management as long as she continues to improve and not stagnate.
--- NOTE | 2024-05-26 06:08 | P.PN ---
Subjective Date of Service: 05/22/24 Patient is still with some abdominal pain with nausea. Will discuss with General surgery regarding NG tube placement. Otherwise, patient denies any new complaints. Clinical symptoms are stable. Review of Systems 10-point ROS is otherwise unremarkable Physical Examination - Vital Signs Temperature: 97.7 F Blood Pressure: 149/81 Pulse: 82 Respirations: 17 Pulse Ox (%): 97 - Physical Exam General: Alert, In no apparent distress, Oriented x3, Other (NGT) Respiratory: Clear to auscultation bilaterally, Normal air movement Cardiovascular: Regular rate/rhythm, Normal S1 S2 Gastrointestinal: Soft and benign, Non-distended, Hyperactive, Tenderness Musculoskeletal: No clubbing, No swelling, No tenderness Neurological: Sensation intact, Cranial nerves 3-12 intact - Studies Medications List Reviewed: Yes Assessment & Plan - Problems (Diagnosis) (1) Small bowel obstruction Onset Date: 04/05/17 Current Visit: No Status: Acute (2) Hx of abdominal surgery Current Visit: Yes Status: Acute (3) HTN (hypertension) Current Visit: Yes Status: Acute (4) Hyperlipidemia Current Visit: Yes Status: Acute (5) Hypothyroid Current Visit: Yes Status: Acute - Plan Plan: 1. Small-bowel obstruction; NG tube to suction. General surgery consultation. Continue with gentle hydration and antibiotics is needed. patient with history of appendectomy, hysterectomy, cholecystectomy 2. Hypertension; continue with antihypertensives 3. Hypothyroidism; continue with Synthroid 4. Gi DVT prophylaxis Discharge Plan: Home Plan to discharge in: Greater than 2 days - Advance Directives Does patient have a Living Will: No Does patient have a Durable POA for Healthcare: No - Code Status/Comfort Care Code Status: Full Code Critical Care: No Time Spent Managing PTS Care (In Minutes): 35
--- NOTE | 2024-05-26 06:13 | P.PN ---
Date of Service: 05/23/24 Subjective Patient is clinically doing well; NG tube in place. Large amount of secretions. Denies any flatus Physical Examination - Vital Signs Reviewed - Physical Exam General: Alert, In no apparent distress, Oriented x3, Other (NGT) Respiratory: Clear to auscultation bilaterally, Normal air movement Cardiovascular: Regular rate/rhythm, Normal S1 S2 Gastrointestinal: Soft and benign, Non-distended, Hyperactive, Tenderness Musculoskeletal: No clubbing, No swelling, No tenderness Neurological: Sensation intact, Cranial nerves 3-12 intact Assessment & Plan - Problems (Diagnosis) (1) Small bowel obstruction Onset Date: 04/05/17 Current Visit: No Status: Acute (2) Hx of abdominal surgery Current Visit: Yes Status: Acute (3) HTN (hypertension) Current Visit: Yes Status: Acute (4) Hyperlipidemia Current Visit: Yes Status: Acute (5) Hypothyroid Current Visit: Yes Status: Acute - Plan Continue with plan of care as mentioned below: 1. Small-bowel obstruction; NG tube to suction. General surgery consultation. Continue with gentle hydration and antibiotics is needed. patient with history of appendectomy, hysterectomy, cholecystectomy 2. Hypertension; continue with antihypertensives 3. Hypothyroidism; continue with Synthroid 4. Gi DVT prophylaxis Discharge Plan: Home Plan to discharge in: Greater than 2 days - Advance Directives Does patient have a Living Will: No Does patient have a Durable POA for Healthcare: No - Code Status/Comfort Care Code Status: Full Code Critical Care: No Time Spent Managing PTS Care (In Minutes): 25
--- NOTE | 2024-05-26 06:15 | P.PN ---
Date of Service: 05/24/24 Subjective patient states she has some flatus today. Patient also has some questionable blood in the NG tube. Will start Protonix. Patient also with a flutter with slow ventricular response. Cardiology consulted. Physical Examination - Vital Signs Reviewed - Physical Exam General: Alert, In no apparent distress, Oriented x3, Other (NGT) Respiratory: Clear to auscultation bilaterally, Normal air movement Cardiovascular: Regular rate/rhythm, Normal S1 S2 Gastrointestinal: Soft and benign, Non-distended, Hyperactive, Tenderness Musculoskeletal: No clubbing, No swelling, No tenderness Neurological: Sensation intact, Cranial nerves 3-12 intact Assessment & Plan - Problems (Diagnosis) (1) Small bowel obstruction Onset Date: 04/05/17 Current Visit: No Status: Acute (2) Hx of abdominal surgery Current Visit: Yes Status: Acute (3) HTN (hypertension) Current Visit: Yes Status: Acute (4) Hyperlipidemia Current Visit: Yes Status: Acute (5) Hypothyroid Current Visit: Yes Status: Acute (6) Atrial flutter with slow ventricular response Current Visit: Yes Status: Acute - Plan Continue with plan of care as mentioned below: 1. Small-bowel obstruction; NG tube to suction. General surgery consultation appreciated. Continue with gentle hydration and antibiotics is needed. patient with history of appendectomy, hysterectomy, cholecystectomy. Patient started to have flatus. Bowel sounds hyperactive. 2. Hypertension; continue with antihypertensives 3. Hypothyroidism; continue with Synthroid 4. Atrial flutter with slow ventricular response; echocardiogram pending and Cardiology consulted 5. Gi DVT prophylaxis Discharge Plan: Home Plan to discharge in: Greater than 2 days - Advance Directives Does patient have a Living Will: No Does patient have a Durable POA for Healthcare: No - Code Status/Comfort Care Code Status: Full Code Critical Care: No Time Spent Managing PTS Care (In Minutes): 25
--- NOTE | 2024-05-26 06:16 | P.PN ---
Date of Service: 05/25/24 Subjective Patient clinically doing well. Patient with bowel sounds and had a small bowel movement. Spoke with surgery and plan to do small bowel series in a.m.. Physical Examination - Vital Signs Reviewed - Physical Exam General: Alert, In no apparent distress, Oriented x3, Other (NGT) Respiratory: Clear to auscultation bilaterally, Normal air movement Cardiovascular: Regular rate/rhythm, Normal S1 S2 Gastrointestinal: Soft and benign, Non-distended, Hyperactive, Tenderness Musculoskeletal: No clubbing, No swelling, No tenderness Neurological: Sensation intact, Cranial nerves 3-12 intact Assessment & Plan - Problems (Diagnosis) (1) Small bowel obstruction Onset Date: 04/05/17 Current Visit: No Status: Acute (2) Hx of abdominal surgery Current Visit: Yes Status: Acute (3) HTN (hypertension) Current Visit: Yes Status: Acute (4) Hyperlipidemia Current Visit: Yes Status: Acute (5) Hypothyroid Current Visit: Yes Status: Acute (6) Atrial flutter with slow ventricular response Current Visit: Yes Status: Acute - Plan Continue with plan of care as mentioned below: 1. Small-bowel obstruction; NG tube to suction. General surgery consultation appreciated. Continue with gentle hydration and antibiotics is needed. patient with history of appendectomy, hysterectomy, cholecystectomy. Patient started to have flatus. Bowel sounds hyperactive. Plan to do a small bowel series 2. Hypertension; continue with antihypertensives 3. Hypothyroidism; continue with Synthroid 4. Atrial flutter with slow ventricular response; echocardiogram pending and Cardiology consulted 5. Gi DVT prophylaxis Discharge Plan: Home Plan to discharge in: Greater than 2 days - Advance Directives Does patient have a Living Will: No Does patient have a Durable POA for Healthcare: No - Code Status/Comfort Care Code Status: Full Code Critical Care: No Time Spent Managing PTS Care (In Minutes): 25
--- NOTE | 2024-05-26 06:17 | P.PN ---
Date of Service: 05/26/24 Subjective Small bowel series with no significant movement of contrast. Plan for n.p.o. and surgery in AM. Will do KUB in the morning prior to surgery. Physical Examination - Vital Signs Reviewed - Physical Exam General: Alert, In no apparent distress, Oriented x3, Other (NGT) Respiratory: Clear to auscultation bilaterally, Normal air movement Cardiovascular: Regular rate/rhythm, Normal S1 S2 Gastrointestinal: Soft and benign, Distended, Hyperactive, Tenderness Musculoskeletal: No clubbing, No swelling, No tenderness Neurological: Sensation intact, Cranial nerves 3-12 intact Assessment & Plan - Problems (Diagnosis) (1) Small bowel obstruction Onset Date: 04/05/17 Current Visit: No Status: Acute (2) Hx of abdominal surgery Current Visit: Yes Status: Acute (3) HTN (hypertension) Current Visit: Yes Status: Acute (4) Hyperlipidemia Current Visit: Yes Status: Acute (5) Hypothyroid Current Visit: Yes Status: Acute (6) Atrial flutter with slow ventricular response Current Visit: Yes Status: Acute - Plan Continue with plan of care as mentioned below: 1. Small-bowel obstruction; NG tube to suction. General surgery consultation appreciated. Continue with gentle hydration and antibiotics is needed. patient with history of appendectomy, hysterectomy, cholecystectomy. Patient started to have flatus. Bowel sounds hyperactive. Small bowel series was very little movement; repeat KUB in the morning and possible surgery intervention. 2. Hypertension; continue with antihypertensives 3. Hypothyroidism; continue with Synthroid 4. Atrial flutter with slow ventricular response; echocardiogram pending and Cardiology consulted 5. Gi DVT prophylaxis Discharge Plan: Home Plan to discharge in: Greater than 2 days - Advance Directives Does patient have a Living Will: No Does patient have a Durable POA for Healthcare: No - Code Status/Comfort Care Code Status: Full Code Critical Care: No Time Spent Managing PTS Care (In Minutes): 25
[2024-05-26] MEDS: METOCLOPRAMIDE 10 MG/2mL INJ IV ONE (08:00)
--- NOTE | 2024-05-26 08:10 | RAD REPORT ---
Exam:Abdomen 1 View (KUB) Clinical history: Abdominal pain FINDINGS: Dilatation of small bowel with diminished air in the colon without significant change having the appe arance of an obstruction Nasogastric tube within the distal stomach.
[2024-05-26 08:18] LABS: Absolute Eosinophils 0.1 K/uL (0-0.5); Absolute Monocytes 0.5 K/uL (0.1-1.3); Absolute Neutrophil 5.8 K/uL (1.8-8.0); Basophils % 0.1 % (0-1.3); Eosinophils % 0.9 % (0-4.4); Hematocrit 35.6 % (36.0-45.0); Hemoglobin 12.3 g/dL (12.0-15.0); Lymphocytes % 13.7 % (15.3-44.8); MCH 31.8 pg (27.0-35.0); MCHC 34.4 g/dL (32.0-36.0); MCV 92.3 fL (80-100); MPV 8.2 fL (7.6-11.3); Monocytes % 7.2 % (3.3-12.3); Neutrophils % 78.1 % (41.7-73.7); Nucleated Red Blood Cells % 0.1 % (0-0); Platelets 208 thou/uL (152-406); RBC Red Blood Cell Count 3.86 M/uL (3.86-4.86); Red Cell Distribution Width 13.4 % (12.1-15.2)
[2024-05-26 08:32] LABS: Anion Gap 6.4 mEq/L (5.0-15.0); Potassium 3.4 mEq/L (3.5-5.1)
--- NOTE | 2024-05-26 12:06 | EKG ---
Test Date: 2024-05-24 Test Time: 04:58:32 [employer] Rep[employer] Supervisor: ALEXIA MEASUREMENT RESULTS: Intervals: Rate: 40 KS: 160 QRSD: 90 QT: 488 QTc: 397 Oscar: P: 49 KS: 160 QRS: 5 T: 40 INTERPRETIVE STATEMENTS: Marked sinus bradycardia Abnormal ECG Compared to ECG 04/04/2017 09:09:32 Sinus rhythm no longer present Electronically Signed On 05-26-24 12:01:40 CDT by Bashir Kuo
[2024-05-26] MEDS: KCL 20 MEQ/100 mL IVPB 20 MEQ/100 ML BAG IV SCH (15:16)
--- NOTE | 2024-05-26 18:52 | RAD REPORT ---
EXAMINATION: Small bowel series CLINICAL INDICATION: Female, 79 years old. ileus/SBO COMPARISON: No prior exam. FINDINGS: Multiple significantly dilated small bowel loops in the central abdomen are present which show very l ittle movement over time compatible with moderate mechanical small bowel obstruction. Enteric tube is in the stomach. Bilateral hip arthroplasties. No fluoroscopy was performed. Total images acquired:16 IMPRESSION: Moderately severe mechanical small bowel obstruction.
[2024-05-26] MEDS: DIPHENHYDRAMINE 50 MG/ML VIAL IV ONE ×2 (23:00→23:53)
[2024-05-27] MEDS: HYDRALAZINE HCL 20 MG/ML VIAL IV ONE (06:16)
[2024-05-27 06:56] LABS: Anion Gap 8.7 mEq/L (5.0-15.0); Potassium 3.7 mEq/L (3.5-5.1)
--- NOTE | 2024-05-27 07:29 | RAD REPORT ---
EXAM: Abdomen W Erect HISTORY: SBO COMPARISON: Yesterday FINDINGS: Small bowel dilatation centrally has improved though not completely resolved. For example, only a por tion of the small bowel is dilated and measures up to 3.9 cm, previously 4.6 cm .Enteric contrast reaches the sigmoid. NG tube in the stomach. Lung bases clear. No acute osseous abnormality. Bilateral hip arthroplasties. No significant/abnormal calcifications. IMPRESSION: Enteric contrast identified within the colon which excludes a complete bowel obstruction. Overall, improvement in small bowel dilatation. This may reflect resolving small bowel obstruction.
[2024-05-27] MEDS: D5W 1,000 ML IV SCH (09:10)
[2024-05-27] MEDS: Mupirocin NASAL 2 APPL/1 GM TUBE NAS SCH (09:10)
[2024-05-27] MEDS: Ringers Lactate 1,000 ML IV ONE (10:50)
[2024-05-27] MEDS: SCOPOLAMINE HYDROBROMIDE PATCH TD ONE (11:03)
--- NOTE | 2024-05-27 12:21 | P.PN ---
Subjective Date of Service: 05/27/24 Chief Complaint: SBO Subjective: Improving (Patient had large bowel movement after small bowel series last night and feels significant symptomatic improvement.) Physical Examination - Vital Signs Temperature: 97.9 F Blood Pressure: 193/82 Pulse: 46 Respirations: 16 Pulse Ox (%): 93 - Physical Exam General: Alert, In no apparent distress, Cooperative Gastrointestinal: Soft and benign, Other (Soft nontender nondistended no rebound or guarding no focal peritonitis essentially benign abdominal exam at this point significantly improved from prior exam.) - Studies Medications List Reviewed: Yes Assessment And Plan - Plan Patient is an 79-year-old woman with multiple abdominal surgeries including 3 C- sections cholecystectomy appendectomy who now presents with a small bowel obstruction. -Continue serial abdominal exams. -Continue NG tube decompression -clamp trial for 6 hours if tolerated DC NG tube and start sips of clear liquid diet. -Continue medical management. -Serial KUBs. -I have spoken to the patient and her daughter and granddaughter and they all would like to prevent surgery if at all possible as she has had significant history of surgery as described above. She would like to wait at this time before considering surgical intervention. -Ambulate with assist. -Patient has electrolyte abnormalities, will discuss with hospitalist on the management and electrolyte correction strategies. -As patient continues to have slow improvement we will be patient and continue medical management, however if she stagnates and/or has worsening clinical picture I have discussed the need for operative intervention at that time however the patient and her daughter do not want to proceed with surgery at this point and would like to continue medical management as long as she continues to improve and not stagnate.
--- NOTE | 2024-05-27 12:56 | P.CNS ---
Date of Consult: 05/27/24 Chief Complaint: SBO History of Present Illness: Patient with PMH of Diastolic heart failure, SVT, presented with abdominal pain and found to have SBO, cardiology consulted for preoperative clearance, denies any cardiac symptoms. Allergies NSAIDS (Non-Steroidal Anti-Inflamma Adverse Reaction (Verified 05/21/24 23:59) pancreatic enzymes Home medications list reviewed: Yes Home Medications: Aspirin Chewable [Aspirin Chewable*] 81 mg PO BEDTIME 07/07/13 Fenofibrate Nanocrystallized [Fenofibrate] 145 mg PO DAILY 07/07/13 Furosemide [Lasix*] 40 mg PO BID 07/07/13 Multivitamin A-Z 50+ Advanced 1 tab PO DAILY 07/07/13 Nebivolol HCl [Bystolic*] 20 mg PO DAILY 07/07/13 Simvastatin 20 mg PO BEDTIME 07/07/13 Calcium 12mg+Vit D3 25mcg 1 tab PO BEDTIME 05/21/24 Cholecalciferol (Vitamin D3) [Vitamin D3] 2,000 unit PO BEDTIME 05/21/24 Famotidine 20 mg PO BEDTIME 05/21/24 Hyoscyamine Sulfate 0.125 mg PO SEECOM 05/21/24 L.acidoph,Paracasei, B.lactis [Probiotic] 1 each PO DAILY 05/21/24 Levothyroxine Sodium 150 mcg PO DAILY 05/21/24 Losartan Potassium 25 mg PO BID 05/21/24 Metformin HCl [Glucophage] 500 mg PO BIDWM 05/21/24 Omeprazole 20 mg PO DAILY 05/21/24 Spironolactone 25 mg PO DAILY 05/21/24 Turmeric Root Extract [Turmeric] 1,000 mg PO TID 05/21/24 - Past Medical/Surgical History Diabetic: Yes -: HTN, HYPERLIPIDEMIA, HYPOTHYROID -: Small Bowel Obstruction -: DM -: X3 , R-HIP REPLACEMENT, L KNEE REPLACEMENT -: APPENDECTOMY, CHOLECYSTECTOMY -: TONSILECTOMY -: L shoulder total replacement -: cervical laminectomy - Family History Mother Medical History: Cancer Notes: Pancreatic; high cholesterol Father Medical History: Heart disease, Stroke - Social History Smoking Status: Never smoker Alcohol use: No CD- Drugs: No Caffeine use: Yes Place of Residence: Home Review of Systems 10-point ROS is otherwise unremarkable Physical Examination Temp Pulse Resp BP Pulse Ox 97.9 F 46 L 16 193/82 H 93 05/27/24 12:21 05/27/24 12:21 05/27/24 12:21 05/27/24 12:21 05/27/24 12:21 General: Alert, In no apparent distress HEENT: Atraumatic, PERRLA, Mucous membr. moist/pink, EOMI, Sclerae nonicteric Neck: Supple, 2+ carotid pulse no bruit, No LAD, Without JVD or thyroid abnormality Respiratory: Clear to auscultation bilaterally, Normal air movement Cardiovascular: Regular rate/rhythm, Normal S1 S2 Gastrointestinal: Normal bowel sounds, No tenderness Musculoskeletal: No tenderness Integumentary: No rashes Neurological: Normal gait, Normal speech, Normal tone, Normal affect Lymphatics: No axilla or inguinal lymphadenopathy - Problems (1) Preoperative clearance Current Visit: Yes Status: Acute Plan: Patient had no active cardiac symptoms. patient had a recent stress test at cardiology office that was normal, also echo show normal EF with DD. Patient is cleared as low cardiac risk for surgery. (2) Chronic diastolic heart failure Current Visit: Yes Status: Acute Plan: continue patient home medications Aldactone 25 mg daily Lasix 40 mg daily Bystolic continue to monitor.
--- NOTE | 2024-05-27 15:29 | P.PN ---
Subjective Date of Service: 05/27/24 Chief Complaint: SBO Subjective: No chest pain or shortness of breath. No nausea or vomiting. No abdominal pain. No obvious bleeding. Looks comfortable in the bed. Passing Gas, had a bowel movement today. Objective: General appearance: Alert and comfortable CVS: Normal S1 and S2 Lungs: Clear to auscultation bilaterally Abdomen: Soft, bowel sounds present, no tenderness. NG tube Present. Extremities: No lower extremity edema Physical Examination - Vital Signs Temperature: 97.9 F Blood Pressure: 193/82 Pulse: 46 Respirations: 16 Pulse Ox (%): 93 - Studies Medications List Reviewed: Yes Assessment And Plan - Plan 1. Small-bowel obstruction; NG tube to suction. General surgery consultation appreciated. -Improving, discussed with surgical team, plan for NG tube clamp, if no symptoms, will start liquid diet. 2. Hypertension; continue with antihypertensives PRN IV for now, resume oral meds soon 3. Hypothyroidism; start Synthroid IV 4. Atrial flutter with slow ventricular response; Cardiology consulted 5. UTI: Continue antibiotics. 6. Hypernatremia: Adjusted IV fluids. Plan discussed with the patient and family at bedside, answered all questions, discussed with surgical team.
[2024-05-27] MEDS: LEVOTHYROXINE SODIUM 100 MCG VIAL IV ONE (16:08)
[2024-05-27 18:03] LABS: Anion Gap 9.4 mEq/L (5.0-15.0); Potassium 3.4 mEq/L (3.5-5.1)
[2024-05-27] MEDS: DIPHENHYDRAMINE 50 MG/ML VIAL IV ONE (22:27)
[2024-05-28 04:57] LABS: Absolute Eosinophils 0.1 K/uL (0-0.5); Absolute Monocytes 0.6 K/uL (0.1-1.3); Absolute Neutrophil 5.6 K/uL (1.8-8.0); Basophils % 0.1 % (0-1.3); Eosinophils % 1.6 % (0-4.4); Hematocrit 32.8 % (36.0-45.0); Hemoglobin 11.1 g/dL (12.0-15.0); Lymphocytes % 14.3 % (15.3-44.8); MCH 31.6 pg (27.0-35.0); MCV 92.9 fL (80-100); MPV 8.5 fL (7.6-11.3); Monocytes % 7.7 % (3.3-12.3); Neutrophils % 76.3 % (41.7-73.7); Nucleated Red Blood Cells % 0.2 % (0-0); Platelets 173 thou/uL (152-406); RBC Red Blood Cell Count 3.53 M/uL (3.86-4.86); Red Cell Distribution Width 13.6 % (12.1-15.2)
[2024-05-28 05:26] LABS: Albumin 2.5 g/dL (3.4-5.0); Albumin/Globulin Ratio 0.9 (1.1-1.8); Anion Gap 8.3 mEq/L (5.0-15.0); Bilirubin Direct 0.4 mg/dL (0-0.2); Bilirubin Indirect, Calculated 0.4 mg/dL (0.2-0.8); Bilirubin Total 0.8 mg/dL (0.2-1.0); Globulin 2.9 g/dL (2.3-3.5); Magnesium 2.5 mg/dL (1.6-2.4); Phosphorus 2.3 mg/dL (2.5-4.9); Potassium 3.3 mEq/L (3.5-5.1); Protein, Total 5.4 g/dL (6.4-8.2)
[2024-05-28] MEDS: KCL 20 MEQ/100 mL IVPB 20 MEQ/100 ML BAG IV SCH (05:42)
[2024-05-28] MEDS ORDERED: POTASSIUM PHOS 30 MM in NA CHLORIDE 0.9% 500 ML IV ONE (08:48)
[2024-05-28] MEDS: POTASSIUM PHOS IN 0.9 % NACL 15 MMOL/250 ML BAG IV ONE (09:51)
--- NOTE | 2024-05-28 10:34 | P.PN ---
Subjective Date of Service: 05/28/24 Chief Complaint: SBO Subjective: No new changes, No C/O voiced, Tolerating diet, Ambulating, Improving Review of Systems 10-point ROS is otherwise unremarkable Physical Examination - Vital Signs Temperature: 98.4 F Blood Pressure: 197/84 Pulse: 46 Respirations: 14 Pulse Ox (%): 94 - Physical Exam General: Alert, In no apparent distress HEENT: Atraumatic, PERRLA, EOMI Neck: Supple, JVD not distended Respiratory: Clear to auscultation bilaterally, Normal air movement Cardiovascular: Regular rate/rhythm, Normal S1 S2 Gastrointestinal: Normal bowel sounds, No tenderness Musculoskeletal: No tenderness Integumentary: No rashes Neurological: Normal speech, Normal tone, Normal affect Lymphatics: No axilla or inguinal lymphadenopathy - Studies Medications List Reviewed: Yes Assessment And Plan - Current Problems (Diagnosis) (1) Preoperative clearance Current Visit: Yes Status: Acute Plan: Patient had no active cardiac symptoms. patient had a recent stress test at cardiology office that was normal, also echo show normal EF with DD. Patient is cleared as low cardiac risk for surgery. Cardiology will sign off, please call with any questions (2) Chronic diastolic heart failure Current Visit: Yes Status: Acute Plan: continue patient home medications Aldactone 25 mg daily Lasix 40 mg daily Bystolic continue to monitor.
--- NOTE | 2024-05-28 13:12 | P.PN ---
Subjective Date of Service: 05/28/24 Chief Complaint: SBO Subjective: Improving (Patient tolerated clear liquid diet continues to pass gas from her bottom. No abdominal pain no tenderness has been ambulatory.) Physical Examination - Vital Signs Temperature: 97.5 F Blood Pressure: 175/93 Pulse: 45 Respirations: 18 Pulse Ox (%): 99 - Physical Exam General: Alert, In no apparent distress, Cooperative Gastrointestinal: Other (Soft nontender nondistended no rebound no guarding no focal peritonitis completely benign abdominal exam.) - Studies Medications List Reviewed: Yes Assessment And Plan - Plan Patient is an 79-year-old woman with multiple abdominal surgeries including 3 C- sections cholecystectomy appendectomy who now presents with a small bowel obstruction. -Continue serial abdominal exams. -NGT out, tolerating ice and water, advance to clear liquid non-carbonated -Continue medical management. -I have spoken to the patient and her daughter and granddaughter and they all would like to prevent surgery if at all possible as she has had significant history of surgery as described above. She would like to wait at this time before considering surgical intervention. -Ambulate with assist. -Patient has electrolyte abnormalities, will discuss with hospitalist on the management and electrolyte correction strategies. -As patient continues to have slow improvement we will be patient and continue medical management, however if she stagnates and/or has worsening clinical picture I have discussed the need for operative intervention at that time however the patient and her daughter do not want to proceed with surgery at this point and would like to continue medical management as long as she continues to improve and not stagnate.
--- NOTE | 2024-05-28 14:43 | P.PN ---
Subjective Date of Service: 05/28/24 Chief Complaint: SBO Subjective: No chest pain or shortness of breath. No nausea or vomiting. No abdominal pain. No obvious bleeding. Looks comfortable in the bed. Passing Gas, had a bowel movement yesterday. Objective: General appearance: Alert and comfortable CVS: Normal S1 and S2 Lungs: Clear to auscultation bilaterally Abdomen: Soft, bowel sounds present, no tenderness. NG tube off Extremities: No lower extremity edema Physical Examination - Vital Signs Temperature: 97.5 F Blood Pressure: 175/93 Pulse: 45 Respirations: 18 Pulse Ox (%): 99 - Studies Medications List Reviewed: Yes Assessment And Plan - Plan 1. Small-bowel obstruction; NG tube out. General surgery consultation appreciated. -Improving, discussed with surgical team, start liquid diet. 2. Hypertension; continue with antihypertensives PRN IV for now, resume oral meds soon 3. Hypothyroidism; given Synthroid IV, resume oral from tomorrow if tolerates liquids today 4. Atrial flutter with slow ventricular response; Cardiology on board 5. UTI: Continue antibiotics. 6. Hypernatremia: improving, DC IV fluids. Plan discussed with the patient and family at bedside, answered all questions, discussed with surgical team.
[2024-05-28] MEDS: LEVOTHYROXINE SODIUM 100 MCG VIAL IV ONE (15:48)
[2024-05-29] MEDS: LEVOTHYROXINE SOD 0.125 MG TAB PO SCH (05:31)
[2024-05-29 06:01] LABS: Absolute Eosinophils 0.3 K/uL (0-0.5); Absolute Lymphocytes (CBC) 1.3 K/uL (0.7-4.9); Absolute Monocytes 0.5 K/uL (0.1-1.3); Absolute Neutrophil 4.5 K/uL (1.8-8.0); Basophils % 0.3 % (0-1.3); Eosinophils % 4.8 % (0-4.4); Hematocrit 33.1 % (36.0-45.0); Hemoglobin 11.4 g/dL (12.0-15.0); Lymphocytes % 18.9 % (15.3-44.8); MCH 31.7 pg (27.0-35.0); MCHC 34.3 g/dL (32.0-36.0); MCV 92.2 fL (80-100); MPV 8.4 fL (7.6-11.3); Monocytes % 8.2 % (3.3-12.3); Neutrophils % 67.8 % (41.7-73.7); Nucleated Red Blood Cells % 0.1 % (0-0); Platelets 173 thou/uL (152-406); RBC Red Blood Cell Count 3.59 M/uL (3.86-4.86); Red Cell Distribution Width 13.2 % (12.1-15.2)
[2024-05-29 06:09] LABS: Anion Gap 8.8 mEq/L (5.0-15.0); Magnesium 2.4 mg/dL (1.6-2.4); Phosphorus 2.9 mg/dL (2.5-4.9); Potassium 3.8 mEq/L (3.5-5.1)
[2024-05-29] MEDS: POTASSIUM 25 MEQ EFFERV TAB PO ONE (08:22)
--- NOTE | 2024-05-29 08:50 | EKG ---
Test Date: 2024-05-24 Test Time: 19:21:25 Biomedical Specialist: MORTEZAG MEASUREMENT RESULTS: Intervals: Rate: 79 AL: QRSD: 84 QT: 380 QTc: 435 [place]: P: AL: QRS: 15 T: 35 INTERPRETIVE STATEMENTS: Atrial fibrillation with premature ventricular or aberrantly conducted complexes Abnormal ECG Compared to ECG 05/24/2024 04:58:32 Ventricular premature complex(es) now present Sinus bradycardia no longer present Electronically Signed On 05-29-24 08:40:59 CDT by Bashir Kuo
[2024-05-29] MEDS: LOSARTAN POTASSIUM 50 MG TABLET PO SCH (09:08)
--- NOTE | 2024-05-29 13:35 | P.PN ---
Subjective Date of Service: 05/29/24 Chief Complaint: SBO Subjective: No chest pain or shortness of breath. No nausea or vomiting. No abdominal pain. No obvious bleeding. Looks comfortable in the bed. had a bowel movement yesterday. Tolerating liquids well so far. Objective: General appearance: Alert and comfortable CVS: Normal S1 and S2 Lungs: Clear to auscultation bilaterally Abdomen: Soft, bowel sounds present, no tenderness. Extremities: No lower extremity edema Physical Examination - Vital Signs Temperature: 97.5 F Blood Pressure: 153/72 Pulse: 45 Respirations: 16 Pulse Ox (%): 98 - Studies Medications List Reviewed: Yes Assessment And Plan - Plan 1. Small-bowel obstruction; NG tube out. General surgery consultation appreciated. -Improving, tolerating liquid diet. -Advance diet as per surgical team. 2. Hypertension; restarted oral medications, monitor blood pressure closely. 3. Hypothyroidism; continue levothyroxine. 4. Atrial flutter with slow ventricular response; Cardiology on board -Patient takes Bystolic at home, due to low heart rate, I discontinued it. Patient's heart rate usually in the 50s at home but now it is 40s. 5. UTI: Continue antibiotics. 6. Hypernatremia: improving, DC IV fluids. 7. Transaminitis: Monitor closely. Plan discussed with the patient and family at bedside, answered all questions.
--- NOTE | 2024-05-29 16:05 | RAD REPORT ---
EXAMINATION: US bilateral LOWER EXTREMITY VENOUS DOPPLER CLINICAL INDICATION: Leg pain and swelling TECHNIQUE: Sonographic evaluation of the veins of the lower extremity bilaterally formed.Grayscale, c olor and spectral analysis performed on all vessels COMPARISON: 2020. FINDINGS: The common femoral, superficial femoral, greater saphenous, popliteal and posterior tibial veins bila terally are compressible and demonstrate augmentation. Doppler demonstrates good flow. IMPRESSION: No evidence of deep venous thrombosis involving either lower extremity
[2024-05-29] MEDS: FUROSEMIDE 40 MG/4 ML VIAL IV SCH (16:27)
[2024-05-30 06:18] LABS: Absolute Eosinophils 0.3 K/uL (0-0.5); Absolute Lymphocytes (CBC) 1.2 K/uL (0.7-4.9); Absolute Monocytes 0.5 K/uL (0.1-1.3); Absolute Neutrophil 4.2 K/uL (1.8-8.0); Basophils % 0.3 % (0-1.3); Eosinophils % 5.4 % (0-4.4); Hematocrit 32.7 % (36.0-45.0); Hemoglobin 11.3 g/dL (12.0-15.0); Lymphocytes % 18.5 % (15.3-44.8); MCH 31.7 pg (27.0-35.0); MCHC 34.4 g/dL (32.0-36.0); MCV 92.1 fL (80-100); MPV 8.5 fL (7.6-11.3); Monocytes % 8.6 % (3.3-12.3); Neutrophils % 67.2 % (41.7-73.7); Nucleated Red Blood Cells % 0.1 % (0-0); Platelets 177 thou/uL (152-406); RBC Red Blood Cell Count 3.55 M/uL (3.86-4.86); Red Cell Distribution Width 13.3 % (12.1-15.2)
[2024-05-30 06:38] LABS: Albumin 2.4 g/dL (3.4-5.0); Albumin/Globulin Ratio 0.9 (1.1-1.8); Anion Gap 9.2 mEq/L (5.0-15.0); Bilirubin Direct 0.2 mg/dL (0-0.2); Bilirubin Indirect, Calculated 0.4 mg/dL (0.2-0.8); Bilirubin Total 0.6 mg/dL (0.2-1.0); Globulin 2.7 g/dL (2.3-3.5); Potassium 3.2 mEq/L (3.5-5.1); Protein, Total 5.1 g/dL (6.4-8.2)
[2024-05-30] MEDS: POTASSIUM CL SA 10 MEQ TAB PO ONE ×2 (08:45→21:31)
[2024-05-30] MEDS: AMLODIPINE 5 MG TAB PO SCH (08:54)
--- NOTE | 2024-05-30 15:28 | P.PN ---
Subjective Date of Service: 05/30/24 Chief Complaint: SBO Subjective: No chest pain or shortness of breath. No nausea or vomiting. No abdominal pain. No obvious bleeding. Looks comfortable in the bed. had a bowel movement yesterday. Tolerating liquids well so far. Objective: General appearance: Alert and comfortable CVS: Normal S1 and S2 Lungs: Clear to auscultation bilaterally Abdomen: Soft, bowel sounds present, no tenderness. Extremities: mild lower extremity edema Physical Examination - Vital Signs Temperature: 98.3 F Blood Pressure: 164/72 Pulse: 54 Respirations: 16 Pulse Ox (%): 100 - Studies Medications List Reviewed: Yes Assessment And Plan - Plan 1. Small-bowel obstruction; NG tube out. General surgery consultation appreciated. -Improving, tolerating liquid diet. -Advance diet as per surgical team. -cont lasix for fluid retention 2. Hypertension; cont ARB, DC'd BB, add norvasc 3. Hypothyroidism; continue levothyroxine. 4. Atrial flutter with slow ventricular response; Cardiology on board -Patient takes Bystolic at home, due to low heart rate, I discontinued it. monitor HR 5. UTI: done with antibiotics. 6. Hypernatremia: improved, DC IV fluids. 7. Transaminitis: Monitor closely. 8. Hypokalemia: Replace and monitor. Plan discussed with the patient and family at bedside, answered all questions.
[2024-05-31 06:11] LABS: Absolute Eosinophils 0.2 K/uL (0-0.5); Absolute Lymphocytes (CBC) 1.4 K/uL (0.7-4.9); Absolute Monocytes 0.6 K/uL (0.1-1.3); Absolute Neutrophil 3.2 K/uL (1.8-8.0); Basophils % 0.3 % (0-1.3); Eosinophils % 4.3 % (0-4.4); Hematocrit 34.1 % (36.0-45.0); Hemoglobin 11.9 g/dL (12.0-15.0); Lymphocytes % 25.2 % (15.3-44.8); MCH 32.1 pg (27.0-35.0); MCHC 34.9 g/dL (32.0-36.0); MCV 91.9 fL (80-100); MPV 7.8 fL (7.6-11.3); Monocytes % 10.3 % (3.3-12.3); Neutrophils % 59.9 % (41.7-73.7); Nucleated Red Blood Cells % 0.1 % (0-0); Platelets 207 thou/uL (152-406); Red Cell Distribution Width 13.2 % (12.1-15.2)
[2024-05-31 06:25] LABS: Albumin 2.5 g/dL (3.4-5.0); Anion Gap 7.7 mEq/L (5.0-15.0); Bilirubin Direct 0.2 mg/dL (0-0.2); Bilirubin Indirect, Calculated 0.3 mg/dL (0.2-0.8); Bilirubin Total 0.5 mg/dL (0.2-1.0); Globulin 2.5 g/dL (2.3-3.5); Magnesium 2.1 mg/dL (1.6-2.4); Phosphorus 2.6 mg/dL (2.5-4.9); Potassium 3.7 mEq/L (3.5-5.1)
[2024-05-31 08:49] LABS: Blood Morphology Comment NOT SEEN (NOT SEEN); Platelet Estimate ADEQ; White Blood Cell Scan OK (OK)
[2024-05-31] MEDS: POTASSIUM CL SA 10 MEQ TAB PO ONE (09:34)
[2024-05-31] MEDS: SPIRONOLACTONE 25 MG TABLET PO SCH (09:34)
[2024-05-31] MEDS: AMLODIPINE 10 MG TAB PO SCH (09:35)
--- NOTE | 2024-05-31 11:13 | P.DS ---
Admission Date: 05/21/24 Discharge Date: 05/31/24 Disposition: DC HOME/HOME HEALTH CARE Discharge Condition: GOOD Reason for Admission: SBO Hospital Course: 1. Small-bowel obstruction; NG tube out. General surgery consultation appreci ated. -Improved - tolerating diet. -DC home today 2. Hypertension; cont ARB, DC'd BB, added norvasc 3. Hypothyroidism; continue levothyroxine. 4. Atrial flutter with slow ventricular response; Cardiology on board -Patient takes Bystolic at home, due to low heart rate, I discontinued it. monitor HR 5. UTI: done with antibiotics. 6. Hypernatremia: improved 7. Transaminitis: improving, f/u with PCP 8. Hypokalemia: Replaced Plan discussed with the patient and family at bedside, answered all questions. 79-year-old patient admitted with small bowel obstruction, she was managed conservatively, she had NG tube placed, once she was clinically getting better, NG tube was discontinued, she was started on liquid diet and diet was slowly advanced in the last few days, when I see the patient today she is tolerating diet well without any acute problems, she had a bowel movement almost every day in the last few days, she feels ready to go home, otherwise no other acute issues going on so I am planning to discharge her to go home, follow-up with PCP and surgery. Subjective: No chest pain or shortness of breath. No nausea or vomiting. No abdominal pain. No obvious bleeding. Looks comfortable in the chair. had a bowel movement yesterday. Tolerating diet well so far. Feels ready to go home. Objective: General appearance: Alert and comfortable CVS: Normal S1 and S2 Lungs: Clear to auscultation bilaterally Abdomen: Soft, bowel sounds present, no tenderness. Extremities: mild lower extremity edema Vital Signs/Physical Exam: Temp Pulse Resp BP Pulse Ox 97.5 F 61 17 140/65 100 05/31/24 08:00 05/31/24 08:00 05/31/24 08:00 05/31/24 08:00 05/31/24 08:00 Laboratory Data at Discharge: WBC 5.40 thou/uL (4.3-10.9) 05/31/24 05:45 Hgb 11.9 g/dL (12.0-15.0) L 05/31/24 05:45 Hct 34.1 % (36.0-45.0) L 05/31/24 05:45 Plt Count 207 thou/uL (152-406) 05/31/24 05:45 Sodium 141 mEq/L (136-145) 05/31/24 05:45 Potassium 3.7 mEq/L (3.5-5.1) 05/31/24 05:45 BUN 17 mg/dL (7-18) 05/31/24 05:45 Creatinine 0.71 mg/dL (0.55-1.02) 05/31/24 05:45 Glucose 127 mg/dL (74-106) H 05/31/24 05:45 Phosphorus 2.6 mg/dL (2.5-4.9) 05/31/24 05:45 Magnesium 2.1 mg/dL (1.6-2.4) 05/31/24 05:45 Total Bilirubin 0.5 mg/dL (0.2-1.0) 05/31/24 05:45 AST 29 U/L (15-37) 05/31/24 05:45 ALT 74 U/L (13-56) H 05/31/24 05:45 Alkaline Phosphatase 41 U/L (45-117) L 05/31/24 05:45 Lipase 92 U/L (13-75) H 05/21/24 18:18 Home Medications: Aspirin Chewable [Aspirin Chewable*] 81 mg PO BEDTIME 07/07/13 Fenofibrate Nanocrystallized [Fenofibrate] 145 mg PO DAILY 07/07/13 Furosemide [Lasix*] 40 mg PO BID 07/07/13 Multivitamin A-Z 50+ Advanced 1 tab PO DAILY 07/07/13 Simvastatin 20 mg PO BEDTIME 07/07/13 Calcium 12mg+Vit D3 25mcg 1 tab PO BEDTIME 05/21/24 Cholecalciferol (Vitamin D3) [Vitamin D3] 2,000 unit PO BEDTIME 05/21/24 Famotidine 20 mg PO BEDTIME 05/21/24 Hyoscyamine Sulfate 0.125 mg PO SEECOM 05/21/24 L.acidoph,Paracasei, B.lactis [Probiotic] 1 each PO DAILY 05/21/24 Levothyroxine Sodium 150 mcg PO DAILY 05/21/24 Metformin HCl [Glucophage*] 500 mg PO BIDWM 05/21/24 Omeprazole 20 mg PO DAILY 05/21/24 Spironolactone 25 mg PO DAILY 05/21/24 Turmeric Root Extract [Turmeric] 1,000 mg PO TID 05/21/24 Amlodipine [Norvasc*] 10 mg PO DAILY #30 tab 05/31/24 Losartan Potassium [Cozaar*] 50 mg PO BID #60 tablet 05/31/24 New Medications: Losartan Potassium [Cozaar*] 50 mg PO BID #60 tablet Amlodipine [Norvasc*] 10 mg PO DAILY #30 tab Diet: ADA Activity: Ad himanshu Followup: Amandeep Joy MD [Primary Care Provider] - 1 Week (f/u with PCP in 5-7 days with CBC and CMP) Rolan Ying MD [ACTIVE - CAN ADMIT] - (f/u in 1 week) Time spent managing pt's care (in minutes): 34
[2024-05-31 12:47] VITALS: BP 119/63; TEMP 98.1
== END 2024-05-31 14:52 | disposition home health service (06) | DRG 389 ==
LOC: ER 17:39 → ERHOLD 20:02 → 2ND 20:56
PROVIDERS: ADMIT Family Medicine; ATTEND Hospitalist
PROC: 0DH67UZ Insertion of Feeding Device into Stomach, Via Natural or Artificial Opening (ICD-10-PCS; principal; 2024-05-23)
DX: K56.50 Intestinal adhesions [bands], unspecified as to partial versus complete obstruction (principal); E87.0 Hyperosmolality and hypernatremia; I48.92 Unspecified atrial flutter; N17.9 Acute kidney failure, unspecified; N39.0 Urinary tract infection, site not specified; I50.32 Chronic diastolic (congestive) heart failure; I11.0 Hypertensive heart disease with heart failure; E03.9 Hypothyroidism, unspecified; E87.6 Hypokalemia; E78.00 Pure hypercholesterolemia, unspecified; R74.01 Elevation of levels of liver transaminase levels; Z90.49 Acquired absence of other specified parts of digestive tract; Z88.8 Allergy status to other drugs, medicaments and biological substances; Z79.82 Long term (current) use of aspirin; Z79.899 Other long term (current) drug therapy; Z96.641 Presence of right artificial hip joint; Z96.652 Presence of left artificial knee joint; Z96.612 Presence of left artificial shoulder joint; Z79.890 Hormone replacement therapy
CPT/HCPCS: 36415; 74018; 74019; 74177; 74250; 80048; 80053; 80076; 81001; 82947; 83690; 83735; 84100; 84132; 84439; 84443; 85025; 87077; 87086; 87088; 87186; 93005; 93970; 96374; 96375; 99285; J0360; J1200; J1650; J1940; J2270; J2405; J2470; J2543; J2765; J3480; J7030; J7120; J7799; Q9967